=== PATIENT | male | born 1985 | race Hispanic/Latino ===

== ENCOUNTER 2020-09-11 16:47 | Emergency (ER) | payer MEDICARE, SELFPAY | END 2020-09-11 17:43 | disposition home or self-care (01) | LOC: MADERS 16:47 | DX: G40.909 Epilepsy, unspecified, not intractable, without status epilepticus (principal); Q85.02 Neurofibromatosis, type 2; F17.210 Nicotine dependence, cigarettes, uncomplicated | CPT/HCPCS: 99283 ==